=== PATIENT | male | born 1950 | race Caucasian/White ===

== ENCOUNTER 2023-05-10 12:44 | Outpatient (CLI) | payer MEDICARE | END 2023-05-10 12:45 | disposition home or self-care (01) | LOC: CSHULT 12:44 | PROVIDERS: ATTEND Internal Medicine | DX: I63.9 Cerebral infarction, unspecified (principal); R93.1 Abnormal findings on diagnostic imaging of heart and coronary circulation | CPT/HCPCS: 93306; 93880 ==

== ENCOUNTER 2024-06-04 09:30 | Outpatient (CLI) | payer MEDICARE | END 2024-06-04 09:31 | disposition home or self-care (01) | LOC: CSHCT 09:30 | PROVIDERS: ATTEND Internal Medicine | DX: Z12.2 Encounter for screening for malignant neoplasm of respiratory organs (principal); Z87.891 Personal history of nicotine dependence | CPT/HCPCS: 71271 ==

== ENCOUNTER 2024-11-02 12:36 | Emergency (ER) | payer MEDICARE ==
[~2024-11-02 12:36] MED LIST: Iopamidol 370 76% 100 ML VIAL ONE
[2024-11-02 13:11] LABS: #Basophils 0.02 10x3/uL (0.0-0.2); #Monocytes 0.94 10x3/uL (0.0-1.1); %Basophils 0.2 % (0.0-2.0); %Lymphocytes 19.4 % (18.0-47.0); %Monocytes 9.1 % (0.0-10.0); %Neutrophils 69.9 % (40.0-75.0); Hematocrit 46.5 % (38.8-50.0); Hemoglobin 15.4 g/dL (13.5-17.5); Mean Corpuscular HGB CONC 33.1 g/dL (32.0-36.0); Mean Corpuscular Hemoglobin 29.3 pg (27.0-33.0); Mean Corpuscular Volume 88.6 fL (81.2-95.1); Mean Platelet Volume 9.8 fL (7.4-10.4); Platelet Count 250 10x3/uL (150-450); RBC Distribution Width 12.9 % (11.5-14.5); Red Blood Cell (RBC) Count 5.25 10x6/uL (4.32-5.72); White Blood Cell (WBC) Count 10.3 10x3/uL (3.5-10.5)
[2024-11-02 13:19] LABS: PTT 28.9 sec (22.0-33.0); Prothrombin Time 10.5 sec (9.5-12.1)
[2024-11-02 13:22] LABS: ALT (SGPT) 14 U/L (8-55); AST (SGOT) 12 U/L (5-34); Albumin 3.7 g/dL (3.4-4.8); Alkaline Phosphatase 104 U/L (40-110); Anion Gap 16 mmol/L (10-20); BUN (Urea Nitrogen) 18 mg/dL (8.4-25.7); Bilirubin, Total 0.5 mg/dL (0.2-1.2); CK (CPK) 22 U/L (30-200); Calc. Creatinine Clearance 0 mL/min (70-130); Calcium 9.7 mg/dL (7.8-10.44); Carbon Dioxide 25 mmol/L (23-31); Chloride 102 mmol/L (98-107); Estimated GFR 59; Globulin 3.2 g/dL (2.4-3.5); Glucose 221 mg/dL (83-110); Potassium 3.9 mmol/L (3.5-5.1); Protein, Total 6.9 g/dL (5.8-8.1); Sodium 139 mmol/L (136-145)
[2024-11-02 13:27] LABS: Troponin I Less than 0.010 ng/mL (< 0.028)
[2024-11-02] MEDS ORDERED: Aspirin Chewable 81 MG TAB ONE (13:51)
[2024-11-02] MEDS ORDERED: hydrALAZINE 20 MG/ML VIAL ONE (14:56)
[2024-11-02 15:33] LABS: Bilirubin Neg (Negative); Blood, Urine Negative (Negative); Clarity Clear (Clear); Glucose, Urine (Dipstick) >=1000 mg/dL (Negative); Ketone, Urine Negative (Negative); Leukocyte Negative (Negative); Nitrite Negative (Negative); Protein, Urine (Dipstick) 100 mg/dl (Neg-Trace); Urobilinogen Normal mg/dL (Less than 2); pH, Urine 6.5 (5.0-9.0)
[2024-11-02 16:21] LABS: CAUTI Indications for Culture Alt mental st,lethar; RBC/HPF 0-3 HPF (0-3); WBC/HPF 0-3 HPF (0-3)
[2024-11-02 16:22] LABS: Bacteria/HPF Rare-Few HPF (None Seen); Squamous Epithelial 0-3 HPF (0-3)
[2024-11-02 16:26] LABS: Urine Culture Reflex No No
== END 2024-11-02 17:10 | disposition left against medical advice (07) ==
LOC: CSHERS 12:36
DX: R41.82 Altered mental status, unspecified (principal); R47.01 Aphasia; I63.9 Cerebral infarction, unspecified; G45.9 Transient cerebral ischemic attack, unspecified; I10 Essential (primary) hypertension; E11.9 Type 2 diabetes mellitus without complications; E78.5 Hyperlipidemia, unspecified
CPT/HCPCS: 0042T; 70450; 71045; 80053; 81001; 82550; 82962; 84484; 85025; 85610; 85730; 93005; J0360; 36416; Q9967

== ENCOUNTER 2024-11-29 12:12 | Outpatient (CLI) | payer MEDICARE ==
[~2024-11-29 12:12] MED LIST changes: -Iopamidol 370 76% 100 ML VIAL ONE; +Magnevist 469MG/ML 20 ML VIAL ONE
== END 2024-11-29 12:13 | disposition home or self-care (01) ==
LOC: CSHULT 12:12
PROVIDERS: ATTEND Psychiatry & Neurology Neurology
DX: R41.82 Altered mental status, unspecified (principal); I67.82 Cerebral ischemia; I63.9 Cerebral infarction, unspecified
CPT/HCPCS: 70553; 76376; 93306